=== PATIENT | female | born 1935 | race Caucasian/White ===

== ENCOUNTER 2021-05-13 09:59 | Emergency (ER) | payer MEDICARE ==
[~2021-05-13] VITALS: Ht 152.4 cm; Wt 60.0 kg
[~2021-05-13 09:59] MED LIST: FOLI1TAB16 PO; GABA600T PO; LEVO100T5 PO; LEVO150T5 PO; LOSA1TAB19 PO; METH2.5T25 PO; OMEP20CA5 PO; OXYC40TA21 PO; OXYC5CAP PO; OXYC80TA16 PO; POLY17PO29 PO; POTA10TA12 PO; PRED-220 PO; PREG100C PO; TIZA4CAP3 PO
[2021-05-13] MEDS ORDERED: IV NORMAL SALINE 1000ML BAG 1,000 ML IV ONE (10:45)
--- NOTE | 2021-05-13 11:25 | RAD ---
CT HEAD/BRAIN WO History: Reason: headache / Spl. Instructions: / History: Comparison: None. Technique: Noncontrast CT imaging was performed of the head. Exposure: One or more of the following individualized dose reduction techniques were utilized for thi s examination: 1. Automated exposure control 2. Adjustment of the mA and/or kV according to patient size 3. Use of iterative reconstruction technique. Findings: Acute right parietal intraparenchymal hemorrhage measures 2.8 x 1.7 cm there is adjacent edema and ma ss effect. Mild brain parenchymal volume loss. Mild foci of decreased attenuation within the hemispheric white m atter, most often due to chronic microvascular ischemia. Intracranial atheromatous calcifications. Imaged orbits are unremarkable. Imaged paranasal sinuses and mastoid air cells are clear. No acute ca lvarial fracture. Extensive postoperative changes of the cervical spine. Impression: 1. Acute right parietal hemorrhage with adjacent edema. FOR INTERNAL CODING PURPOSES Critical result: Findings discussed with Dr. Oneil at 05/13/2021 11:18 AM. RESULT CODE: (C) Electronically signed by: Josemanuel Pabon DO (05/13/2021 11:22 AM) [id number]
[2021-05-13 12:45] VITALS: BP 149/65
[2021-05-13 13:32] LABS: BILIRUBIN,URINE NEGATIVE (NEG); CLARITY,URINE CLEAR; COLOR,URINE YELLOW; NITRITE,URINE NEGATIVE (NEG); PH,URINE 5.5 (<5.0-8.0); PROTEIN,URINE NEGATIVE (NEG-TRACE); UROBILINOGEN,URINE 0.2 mg/dL (0.2 mg/dL)
[2021-05-13 13:33] LABS: BACTERIA,URINE 0 /HPF (0-FEW); RBC,URINE OCC /HPF (0-2); WBC,URINE OCC /HPF (0-4)
--- NOTE | 2021-05-13 14:14 | PHYS DOC ---
Past Medical History Past Medical History: Hypertension Additional Past Medical Histor: RA, GERD, Neuropathy, Chronic back pain; chronic urinary retention Past Surgical History: Cholecystectomy Additional Past Surgical Histo: Thyroid; Back surgery; Thumb; carpal tunnel Smoking Status: Never Smoker Alcohol Use: None Drug Use: None General Adult EDM: Chief Complaint: HEADACHE HPI: HPI: Patient is a 85 year old female who presents with weakness and headache since Thursday. Patient states her symptoms started on Thursday night. Patient reports she was vomiting prior to the headache beginning. Denies recent fall or injury. Denies taking anything for pain prior to arrival. Patient has history of hypertension, GERD. Review of Systems: Review of Systems: Constitutional: Denies fever or chills. [] Eyes: Reports left eye blurriness HENT: Denies nasal congestion or sore throat. [] Respiratory: Denies cough or shortness of breath. [] Cardiovascular: Denies chest pain or edema. [] GI: Denies abdominal pain, nausea, vomiting, bloody stools or diarrhea. [] : Denies dysuria. [] Musculoskeletal: Denies back pain or joint pain. [] Integument: Denies rash. [] Neurologic: Reports headache and weakness Endocrine: Denies polyuria or polydipsia. [] Lymphatic: Denies swollen glands. [] Psychiatric: Denies depression or anxiety. [] Heart Score: C/O Chest Pain: No Risk Factors: Risk Factors: DM, Current or recent (<one month) smoker, HTN, HLP, family history of CAD, obesity. Risk Scores: Score 0 - 3: 2.5% MACE over next 6 weeks - Discharge Home Score 4 - 6: 20.3% MACE over next 6 weeks - Admit for Clinical Observation Score 7 - 10: 72.7% MACE over next 6 weeks - Early Invasive Strategies Current Medications: Current Medications Medications (Trade) Dose Ordered Sig/Ana Start Time Stop Time Status Last Admin Dose Admin Nicardipine HCl 50 mg/Sodium Chloride 250 ml @ 25 mls/hr CONT PRN 05/13/21 11:30 Sodium Chloride 1,000 ml @ 1,000 mls/hr 1X ONCE 05/13/21 10:45 05/13/21 11:44 DC Allergies: Allergies: Allergies Coded Allergies Type Severity Reaction Last Updated Verified iodine Allergy Severe 03/02/17 Yes Sulfa (Sulfonamide Antibiotics) Allergy Intermediate 03/02/17 Yes esomeprazole mag Allergy Intermediate 03/02/17 Yes levofloxacin Allergy Intermediate 03/02/17 Yes Physical Exam: PE: Constitutional: Well developed, well nourished, no acute distress, non-toxic appearance. [] HENT: bilateral external ears normal, oropharynx moist, no oral exudates, nose normal. [] Eyes: PERRLA, conjunctiva normal, no discharge, leftsided hemianopsia Neck: Normal range of motion, no tenderness, supple Cardiovascular:Heart rate regular rhythm, no murmur [] Lungs & Thorax: Bilateral breath sounds clear to auscultation [] Abdomen: Bowel sounds normal, soft, no tenderness, no masses Skin: Warm, dry, no erythema, no rash. [] Back: No tenderness, no CVA tenderness. [] Extremities: No tenderness, no cyanosis, no clubbing, ROM intact, no edema. [] Neurologic: Alert and oriented X 3, normal motor function, normal sensory function, no focal deficits noted. [] Psychologic: Affect normal, judgement normal, mood normal. [] Current Patient Data: Labs: Laboratory Tests Test 05/13/21 12:51 Urine Collection Type Unknown Urine Color Yellow Urine Clarity Clear Urine pH 5.5 (<5.0-8.0) Urine Specific [place] 1.010 (1.000-1.030) Urine Protein Negative mg/dL (NEG-TRACE) Urine Glucose (UA) Negative mg/dL (NEG) Urine Ketones (Stick) Negative mg/dL (NEG) Urine Blood Trace (NEG) Urine Nitrite Negative (NEG) Urine Bilirubin Negative (NEG) Urine Urobilinogen Dipstick 0.2 mg/dL (0.2 mg/dL) Urine Leukocyte Esterase Negative (NEG) Urine RBC Occ /HPF (0-2) Urine WBC Occ /HPF (0-4) Urine Squamous Epithelial Cells Mod /LPF Urine Bacteria 0 /HPF (0-FEW) Vital Signs: Vital Signs Date Time Temp Pulse Resp B/P (MAP) Pulse Ox O2 Delivery O2 Flow Rate FiO2 05/13/21 12:45 61 16 97 05/13/21 10:30 99.4 169/69 (102) 99.4 EKG: EKG: [] Radiology/Procedures: Radiology/Procedures: []on: headache / Spl. Instructions: / History: Comparison: None. Technique: Noncontrast CT imaging was performed of the head. Exposure: One or more of the following individualized dose reduction techniques were utilized for this examination: 1. Automated exposure control 2. Adjustment of the mA and/or kV according to patient size 3. Use of iterative reconstruction technique. Findings: Acute right parietal intraparenchymal hemorrhage measures 2.8 x 1.7 cm there is adjacent edema and mass effect. Mild brain parenchymal volume loss. Mild foci of decreased attenuation within the hemispheric white matter, most often due to chronic microvascular ischemia. Intracranial atheromatous calcifications. Imaged orbits are unremarkable. Imaged paranasal sinuses and mastoid air cells are clear. No acute calvarial fracture. Extensive postoperative changes of the cervical spine. Impression: 1. Acute right parietal hemorrhage with adjacent edema. FOR INTERNAL CODING PURPOSES Critical result: Findings discussed with Dr. Oneil at 05/13/2021 11:18 AM. RESULT CODE: (C) Electronically signed by: Josemanuel Pabon DO (05/13/2021 11:22 AM) [id number] Course & Med Decision Making: Course & Med Decision Making Pertinent Labs and Imaging studies reviewed. (See chart for details) 85-year-old female presents with weakness and headache since Thursday. Patient reports that headache came on gradually. Denies thunderclap. Denies being the worst headache of her life. Patient reports she did have some nausea and vomiting prior to that but assume she had eaten something bad. Patient states that she has no history of migraines and decided to be seen today because it was not getting any better. Work-up in ER consisted of labs, CT head, urinalysis, chest x-ray. On physical exam patient reporting hemianopsia-left eye. No other deficits or sensory changes. NIH of 1. All labs unremarkable. Chest x-ray is unremarkable. CT head shows right parietal hemorrhage. Patient blood pressure elevated in 150s. Nicardapine ordered to keep pressure below 140. Discussed all results with patient and son. Advised patient she would need to be transferred to [facility] for further management. Dr.Aaron Rivera is the accepting physician. Patient will be admitted to the neuro ICU [place] Disclaimer: [place] Disclaimer: This electronic medical record was generated, in whole or in part, using a voice recognition dictation system. Departure Departure Impression: Primary Impression: Acute intracerebral hemorrhage Additional Impression: Weakness Disposition: 02 SHORT TERM HOSPITAL Condition: STABLE Referrals: DIANA RAMOS MD (PCP) MADAN SAWANT APRN May 13, 2021 14:14
== END 2021-05-13 13:35 | disposition short-term general hospital (02) ==
LOC: ER 09:59
DX: R53.1 Weakness (principal); R51.9 Headache, unspecified; R11.10 Vomiting, unspecified; I10 Essential (primary) hypertension; K21.9 Gastro-esophageal reflux disease without esophagitis; G89.29 Other chronic pain; Z90.49 Acquired absence of other specified parts of digestive tract; Z88.1 Allergy status to other antibiotic agents; Z88.2 Allergy status to sulfonamides; Z88.8 Allergy status to other drugs, medicaments and biological substances
CPT/HCPCS: 70450; 81001; 99285-25